=== PATIENT | female | born 1985 ===

== ENCOUNTER 2019-05-09 06:00 | Inpatient (IN) | payer OTHER ==
[2019-05-08 15:20] VITALS: BMI 38.7
--- NOTE | 2019-05-08 20:26 | P.HPOB ---
History of Present Illness H&P Date: 05/08/19 Chief Complaint: Scheduled repeat section with tubal ligation This is a 33 y.o. female, 4, para 3, with an estimated date of confinement of 05/11/2019, estimated gestational age of 39-5/7 weeks who presents for repeat section with tubal ligation via fulgaration for family planning. course has been essentially uncomplicated. labs: Hepatitis B surface antigen-neg RPR-NR Ruvella-immune Blood type-O positive Antibody screen-neg HIV-NR Hemoglobin-9.6 Glucose-64 1 hour glucola-123 GBS-neg OB HX: . Hx of 3 previous sections. GynHx: No hx of STDs. Social Hx: . Works full-time production. Review of Systems Constitutional: Denies chills, Denies fever Eyes: denies blurred vision, denies pain Ears, nose, mouth and throat: Denies headache, Denies sore throat Cardiovascular: Denies chest pain, Denies shortness of breath Respiratory: Denies cough Gastrointestinal: Reports abdominal pain (Irregular Rare Contractions) Genitourinary: Reports pelvic pain, Reports Musculoskeletal: Reports low back pain Neurological: Denies numbness, Denies weakness Psychiatric: Denies anxiety, Denies depression Past Medical History Past Medical History: No Reported History History of Any Multi-Drug Resistant Organisms: None Reported Past Surgical History: Section Additional Past Surgical History / Comment(s): c sect X 3 Past Anesthesia/Blood Transfusion Reactions: No Reported Reaction Additional Past Anesthesia/Blood Transfusion Reaction / Comment(s): no hx blood transfusion Past Psychological History: No Psychological Hx Reported Smoking Status: Never smoker Past Alcohol Use History: None Reported Past Drug Use History: None Reported - Past Family History Mother Family Medical History: Cancer Additional Family Medical History / Comment(s): breast Medications and Allergies Home Medications Medication Instructions Recorded Confirmed Type Pnv No.95/Ferrous Fum/Folic AC 1 tab PO DAILY 05/08/19 05/08/19 History [ Multivitamin Tablet] Allergies Allergy/AdvReac Type Severity Reaction Status Date / Time No Known Allergies Allergy Verified 05/08/19 15:15 Exam Osteopathic Statement: *. No significant issues noted on an osteopathic structural exam other than those noted in the History and Physical/Consult. Intake and Output 05/08/19 05/08/1919 06:59 14:59 22:59 Other: Weight 89.811 kg HEENT: Within normal limits Heart: Regular rate and rhythm Lungs: Clear to auscultation bilaterally Abdomen: Cervix: Closed/60%/floating heart tones: 140s by Doppler Extremities: Negative Homans Assessment and Plan (1) 39 weeks gestation of Status: Acute Code(s): Z3A.39 - 39 WEEKS GESTATION OF SNOMED Code(s): 62843510 (2) Previous delivery affecting Status: Acute Code(s): O34.219 - MATERNAL CARE FOR UNSP TYPE SCAR FROM PREVIOUS DEL SNOMED Code(s): 589737632 (3) Family planning Status: Acute Code(s): Z30.09 - ENCOUNTER FOR OT GENERAL CNSL AND ADVICE ON CONTRACEPTION SNOMED Code(s): 318211240 Plan: Proceed with repeat section with bilateral partial salpingectomy. I have discussed the risks, benefits, and alternative therapies for the above- mentioned procedure and for both sedation/anesthesia as well as necessary blood products administration, if indicated, as they pertain to this patient. The patient has indicated her understanding and acceptance of the risks and procedures discussed.
[2019-05-09] MEDS ORDERED: ceFAZolin IN SWFI 2 GM/20 ML SYRINGE IVP ONE (06:07)
[2019-05-09] MEDS ORDERED: LACTATED RINGERS 1,000 ML IV ONE (06:07)
[2019-05-09] MEDS ORDERED: LIDOCAINE 1% 20 ML VIAL (10MG/ML) FOR IV START INTRADERMA PRN (06:07)
[2019-05-09] MEDS ORDERED: CITRIC ACID-SODIUM CITRATE 15 ML CUP PO ONE (06:07)
[2019-05-09 06:31] LABS: Anisocytosis Slight; Basophils # (A) 0.1 k/uL (0-0.2); Basophils % (A) 1 %; Eosinophils # (A) 0.1 k/uL (0-0.7); Eosinophils % (A) 1 %; HCT 40.4 % (34.0-46.0); HGB 13.2 gm/dL (11.4-16.0); Lymphocytes # (A) 1.7 k/uL (1.0-4.8); Lymphocytes % (A) 17 %; MCH 28.7 pg (25.0-35.0); MCHC 32.7 g/dL (31.0-37.0); MCV 87.8 fL (80.0-100.0); Mean Platelet Volume 7.9; Monocytes # (A) 0.4 k/uL (0-1.0); Monocytes % (A) 4 %; Neutrophils # (A) 7.4 k/uL (1.3-7.7); Neutrophils % (A) 76 %; Platelet Count 213 k/uL (150-450); RDW 17.4 % (11.5-15.5); WBC 9.8 k/uL (3.8-10.6)
--- NOTE | 2019-05-09 08:59 | P.OP ---
Date of Procedure: 05/09/19 Preoperative Diagnosis: 1. Intrauterine at 39-5/7 weeks. 2. History of 3 previous sections. 3. Family-planning. Postoperative Diagnosis: Same Procedure(s) Performed: Repeat low transverse section with bilateral partial salpingectomy Anesthesia: spinal (Duramorph) Surgeon: Alana Parks Computer Network Engineer #1: Sadie [facility] Estimated Blood Loss (ml): 500 Pathology: other (Portions of right and left fallopian tubes) Condition: stable Disposition: floor Indications for Procedure: This is a 33-year-old female 4 para 3 at 39-5/7 weeks who presents to labor and delivery for scheduled repeat section with bilateral partial salpingectomy. I have discussed the risks, benefits, and alternative therapies for the above- mentioned procedure and for both sedation/anesthesia as well as necessary blood products administration, if indicated, as they pertain to this patient. The patient has indicated her understanding and acceptance of the risks and procedures discussed. Operative Findings: A viable female is noted in the vertex presentation with scores of 9 at 1 minute and 9 at 5 minutes and infant weight of 7 lbs. 5 oz. Normal uterus tubes and ovaries are noted. Description of Procedure: The patient is taken to the operating room where she is placed in the dorsal supine position with leftward tilt after spinal Duramorph anesthesia is given. She is prepped and draped in the normal sterile fashion. Skin was tested and found to be adequately anesthetized. A Pfannenstiel skin incision was made with a scalpel. A second knife was used to carry the incision down to the underlying layer of fascia. The fascia was nicked in the midline with a scalpel and then extended laterally bilaterally with Waller scissors. The anterior lip of the fasc ia was grasped with 2 Maggy clamps and then dissected off the underlying rectus muscle in the midline with Waller scissors. The inferior aspect of the fascial incision was grasped with 2 Maggy clamps and dissected off the underlying rectus muscle and the midline with Waller scissors. Next the peritoneum layer was tented up with 2 hemostats and then entered sharply with the scalpel. The incision is extended superiorly and inferiorly with Metzenbaum scissors. Next a DeLee retractor is placed. The vesicouterine peritoneum is entered sharply with Metzenbaum scissors and extended laterally bilaterally with Metzenbaum scissors and then the bladder flap is pushed inferiorly. The lower uterine segment is incised in transverse fashion with the scalpel and then bluntly entered with a hemostat. Clear fluid is noted. The incision was then extended laterally bilaterally with 2 fingers. Next the infant's head is delivered through the incision. Nose and mouth are bulb suctioned. The remainder of the is easily delivered and placed on mother's abdomen. Cord is clamped and cut. Infant is taken to warmer by nursing staff. Uterine fundus is gently massaged and placenta is delivered manually. Uterus is exteriorized and cleared of all clots and debris. Uterine incision is closed with 0 Vicryl suture in a running locked fashion. A second layer of 0 Vicryl suture is used in a running fashion for hemostasis. Next attention was turned to the tubes. The right fallopian tube is grasped in the midportion with a hemostat. Next the mesosalpinx is entered with Bovie cautery. Next 0 Vicryl suture is tied 2 times around both the proximal and distal portions of the tube. Next the knuckle of tube is removed with Metzenbaum scissors. The ends of the tube were then cauterized wit h Bovie cautery. Excellent hemostasis is noted. The same procedure is carried out on the left fallopian tube. Posterior cul-de-sac is suctioned of all clots and debris. Uterus is returned to the abdomen. Incision is noted to be hemostatic. One interrupted stitches placed on the vesicouterine peritoneum where there is noted to be some bleeding. Good hemostasis is noted at this point. Peritoneal layer is closed with 0 Vicryl suture in a running fashion. Muscle layer is reapproximated with 0 Vicryl suture in interrupted fashion. Fascia layer is then closed with 0 PDS suture with 2 sutures meeting in the midline and the knots buried in either side and in the midline. The subcutaneous tissue was then closed with 2-0 Vicryl suture. Skin layer was then closed with bianca. All sponge and needle counts are correct. The patient is taken to recovery room in stable condition.
[2019-05-09] MEDS ORDERED: SIMETHICONE 80 MG CHEWABLE PO PRN (09:31)
[2019-05-09] MEDS ORDERED: HYDROcodone/APAP 5-325MG 1 EACH TAB PO PRN (09:31)
[2019-05-09] MEDS ORDERED: ACETAMINOPHEN TAB 325 MG TAB PO PRN (09:31)
[2019-05-09] MEDS ORDERED: diphenhydrAMINE 25 MG CAP PO PRN (09:31)
[2019-05-09] MEDS ORDERED: LANOLIN CREAM 5 GM TUBE TOPICAL PRN (09:31)
[2019-05-09] MEDS ORDERED: HYDROcodone/APAP 7.5-325MG 1 EACH TAB PO PRN (09:31)
[2019-05-09] MEDS ORDERED: diphenhydrAMINE 50 MG CAP PO PRN (09:31)
[2019-05-09] MEDS ORDERED: ONDANSETRON 4 MG/2 ML VIAL IVP PRN (09:31)
[2019-05-09] MEDS ORDERED: IBUPROFEN 600 MG TAB PO PRN (09:31)
[2019-05-09] MEDS ORDERED: NALOXONE 0.4 MG/ML 1 ML VIAL IV PRN (09:31)
[2019-05-09] MEDS ORDERED: ZOLPIDEM 5 MG TAB PO PRN (09:31)
[2019-05-09] MEDS ORDERED: METOCLOPRAMIDE 5 MG/ML 2 ML VIAL IVP PRN (09:31)
[2019-05-09] MEDS ORDERED: OXYTOCIN 20 UNITS/1000 ML NS 1,000 ML IV SCH (09:31)
[2019-05-09] MEDS ORDERED: KETOROLAC 30 MG/ML 1 ML VIAL IVP PRN (09:31)
[2019-05-09] MEDS ORDERED: diphenhydrAMINE 50 MG/ML 1 ML VIAL IVP PRN ×2 (09:31)
[2019-05-09] MEDS: LACTATED RINGERS 1,000 ML IV SCH ×3 (13:26→23:00)
[2019-05-09 21:23] VITALS: RESP 16
[2019-05-09] MEDS: SENNOSIDES-DOCUSATE SODIUM 1 EACH TAB PO SCH (21:35)
[2019-05-10 07:58] LABS: Anisocytosis Slight; Basophils % (A) 0 %; Eosinophils # (A) 0.1 k/uL (0-0.7); Eosinophils % (A) 1 %; HCT 35.9 % (34.0-46.0); HGB 11.8 gm/dL (11.4-16.0); Lymphocytes # (A) 1.4 k/uL (1.0-4.8); Lymphocytes % (A) 11 %; MCHC 32.7 g/dL (31.0-37.0); MCV 88.6 fL (80.0-100.0); Mean Platelet Volume 7.7; Monocytes # (A) 0.5 k/uL (0-1.0); Monocytes % (A) 4 %; Neutrophils # (A) 10.6 k/uL (1.3-7.7); Neutrophils % (A) 83 %; Platelet Count 189 k/uL (150-450); RBC 4.05 m/uL (3.80-5.40); RDW 16.5 % (11.5-15.5); WBC 12.8 k/uL (3.8-10.6)
--- NOTE | 2019-05-10 08:54 | P.PNOBGPC ---
Subjective - Subjective Principal diagnosis: Status post repeat section with tubal postoperative day #1 Interval history: Patient is doing okay. Her pain is well-controlled. She has not been able to urinate yet and has been straight cathed twice now. Lochia is decreasing. She is breast-feeding. Patient reports: Reports appetite normal, Reports pain well controlled, Reports ambulating normally, Denies voiding normally : doing well, nursing well Objective - Vital Signs Latest vital signs: Vital Signs Temp Pulse Resp BP Pulse Ox 05/10/19 04:00 98.2 F 80 16 98/51 05/09/19 23:24 97.6 F 74 16 105/60 98 05/09/19 20:00 98.2 F 77 16 103/62 96 05/09/19 16:00 96.0 F L 73 18 102/58 97 05/09/19 11:00 73 15 101/57 05/09/19 10:30 71 15 110/56 05/09/19 10:00 70 15 123/74 05/09/19 09:45 70 15 118/71 96 05/09/19 09:30 74 16 115/67 96 05/09/19 09:15 83 16 115/62 98 05/09/19 09:00 96.1 F L 73 15 111/56 100 Intake and Output 05/09/19 05/10/19 05/10/19 22:59 06:59 14:59 Intake Total 1240 Output Total 700 700 Balance 540 -700 Intake: Intake, IV Titration 1000 Amount Lactated Ringers 1,000 ml 1000 @ 4000 mls/hr IV .Q15M ONE Rx#:[id number] Oral 240 Output: Urine 700 700 Uretheral (Prather) 350 350 Other: Voiding Method Indwelling Catheter # Voids 0 0 - Exam Abdomen: Present: normal appearance, soft (Faint bowel sounds 4). Absent: distention, tenderness Incision: Present: normal, dry, intact. Absent: erythematous Uterus: Present: normal, firm. Absent: tenderness - Labs Labs: Abnormal Lab Results - Last 24 Hours (Table) 05/10/19 Range/Units 06:50 WBC 12.8 H (3.8-10.6) k/uL RDW 16.5 H (11.5-15.5) % Neutrophils # 10.6 H (1.3-7.7) k/uL Assessment and Plan Assessment: Status post repeat section with bilateral partial's appendectomy postoperative day #1 (1) 39 weeks gestation of Current Visit: No Status: Acute Code(s): Z3A.39 - 39 WEEKS GESTATION OF SNOMED Code(s): 22136144 (2) Previous delivery affecting Current Visit: No Status: Acute Code(s): O34.219 - MATERNAL CARE FOR UNSP TYPE SCAR FROM PREVIOUS DEL SNOMED Code(s): 180684536 (3) Family planning Current Visit: No Status: Acute Code(s): Z30.09 - ENCOUNTER FOR OTH GENERAL CNSL AND ADVICE ON CONTRACEPTION SNOMED Code(s): 729498748 Plan: We'll continue with postoperative care today. Patient encouraged to continue to try to urinate on her own before straight cath. Encouraged ambulation.
[2019-05-10] MEDS: SENNOSIDES-DOCUSATE SODIUM 1 EACH TAB PO SCH (20:52)
[2019-05-11 08:33] VITALS: BP 124/71; PULSE 89; TEMP 98.4
--- NOTE | 2019-05-11 08:51 | P.DS ---
Providers Date of admission: 05/09/19 06:00 Expected date of discharge: 05/11/19 Attending physician: Alana Parks Primary care physician: Alana Parks - Discharge Diagnosis(es) (1) 39 weeks gestation of Current Visit: No Status: Acute (2) Previous delivery affecting Current Visit: No Status: Acute (3) Family planning Current Visit: No Status: Acute Hospital Course: This is a 33-year-old female 4 para 3 at 39-5/7 weeks who presented for scheduled repeat section with bilateral partial salpingectomy. She underwent the above procedure on 05/09/2019 and delivered a viable female with scores of 9 at 1 minute and 9 at 5 minutes and weight of 7 lbs. 5 oz. Her course was complicated by some urinary retention on the first postoperative day. She did require straight catheter couple times. She currently is urinating without difficulty. She is passing flatus but no bowel movement yet. Her pain is well-controlled and she states she is not taking anything for pain. Lochia is decreasing. She is breast-feeding. Vital signs are stable. Abdomen is soft with fundus firm and nontender. Positive bowel sounds 4 are noted. Incision is clean dry and intact with bianca in place. Extremities show negative Homans. Impression is status post repeat section with bilateral partial salpingectomy postoperative day #2. Plan is to discharge home today. Routine postoperative and instructions are given. Bianca will be removed and Steri-Strips placed prior to discharge. She is advised to call the office if she has any further questions or concerns prior to her appointment time. She is advised to follow up in the office in 1 week for postoperative check and in 6 weeks for a check. Procedures: Repeat low transverse section with bilateral partial salpingectomy on 05/09/2019 Patient Condition at Discharge: Stable Plan - Discharge Summary Discharge Rx Participant: No New Discharge Prescriptions: New Ibuprofen [Motrin] 600 mg PO Q6HR PRN #60 tab PRN Reason: Mild Pain Or Fever >= 100.5 Continue Pnv No.95/Ferrous Fum/Folic AC [ Multivitamin Tablet] 1 tab PO DAILY Discharge Medication List Pnv No.95/Ferrous Fum/Folic AC [ Multivitamin Tablet] 1 tab PO DAILY 05/08/19 [History] Ibuprofen [Motrin] 600 mg PO Q6HR PRN #60 tab 05/11/19 [Rx] Follow up Appointment(s)/Referral(s): Alana Parks DO [Primary Care Provider] - 1 Week Activity/Diet/Wound Care/Special Instructions: Instructions 1. Do not begin any exercise program for 3 weeks. 2. Do not resume sexual relations for 3 weeks or longer if uncomfortable. 3. You may take tub baths or showers at any time. 4. You may use tampons if desired after 3 weeks. 5. Keep the area of episiotomy (stitches) clean and dry. 6. If you are not nursing, wear a good fitting, supportive bra during the day and limit fluid intake for at least 1 week to prevent breast engorgement. 7. Call the office, [phone], within the next week to make appointment for your 6 week checkup if it has not already been made. 8. Report any of the following occurrences to the doctor promptly: a. Heavy, excessive bleeding b. Chills, fever c. Burning or frequency of urination d. Pain or redness and breasts if nursing e. Increasing pain or swelling in episiotomy (stitches). In addition to the above instructions, the following additional should be followed: 1. No heavy lifting or straining (exercising) until after 6 week checkup. 2. Keep abdominal incision clean and dry: You may wear a dressing if more comfortable. 3. Make office appointment for 10 days after going home or as instructed by her doctor. Discharge Disposition: HOME SELF-CARE
== END 2019-05-11 12:00 | disposition home or self-care (01) | DRG 785 ==
LOC: 4FBP 06:00
PROVIDERS: ADMIT Obstetrics & Gynecology; ATTEND Obstetrics & Gynecology
PROC: 0UB70ZZ Excision of Bilateral Fallopian Tubes, Open Approach (ICD-10-PCS; 2019-05-09)
PROC: 10D00Z1 Extraction of Products of Conception, Low, Open Approach (ICD-10-PCS; principal; 2019-05-09 08:00)
DX: O34.211 Maternal care for low transverse scar from previous cesarean delivery (principal); N85.8 Other specified noninflammatory disorders of uterus; Z3A.39 39 weeks gestation of pregnancy; R33.9 Retention of urine, unspecified; Z30.2 Encounter for sterilization; Z37.0 Single live birth; Z79.899 Other long term (current) drug therapy; Z80.3 Family history of malignant neoplasm of breast
CPT/HCPCS: 85025; 86850; 86900; 86901; 88302